=== PATIENT | female | born 1970 | race Caucasian/White ===

== ENCOUNTER 2021-11-01 13:29 | Inpatient (IN) ==
[2021-11-01] MEDS: methocarbamoL 500 MG TABLET PO SCH ×2 (22:06→22:20)
[2021-11-01] MEDS: Gabapentin 300 MG CAPSULE PO SCH (22:20)
[2021-11-01] MEDS: *HR* OxyCODONE Immed Rel 5 MG TABLET PO PRN (22:20)
[2021-11-02] MEDS: Simethicone 80 MG TAB.CHEW PO PRN ×2 (07:39→21:02)
[2021-11-02] MEDS: *HR* OxyCODONE Immed Rel 5 MG TABLET PO PRN ×3 (07:40→21:03)
[2021-11-02] MEDS: *HR* Enoxaparin 40 MG/0.4 ML SYRINGE SQ SCH (07:41)
[2021-11-02] MEDS: methocarbamoL 500 MG TABLET PO SCH ×2 (07:42→16:13)
[2021-11-02 08:18] LABS: Basophils % 0.5 %; Eosinophils # 0.4 K/mcL (0.0-0.6); Eosinophils % 6.8 %; Hemoglobin 8.3 g/dL (11.5-15.4); Immature Granulocytes % 0.9 % (0-4); Lymphocytes # 1.4 K/mcL (0.6-4.6); Lymphocytes % 21.9 %; Mean Corpuscular HGB Conc 29.6 g/dL (31.6-35.5); Mean Corpuscular Hemoglobin 25.6 pg (28.0-33.3); Mean Corpuscular Volume 86.4 fL (83.0-100.0); Mean Platelet Volume 9.7 fL (9.4-12.4); Monocytes # 0.5 K/mcL (0.0-1.3); Monocytes % 7.3 %; Platelet Count 337 K/mcL (140-400); Red Blood Count 3.24 M/mcL (3.82-4.97); Red Cell Distribution Width 18.6 % (11.5-14.5); Segmented Neutrophils % 62.6 %; White Blood Count 6.5 K/mcL (4.3-11.1)
[2021-11-02 08:43] LABS: BUN/Creatinine Ratio 12 (6-26); Blood Urea Nitrogen 7 mg/dL (6-20); Calcium 8.4 mg/dL (8.6-10.3); Carbon Dioxide 29 mEq/L (23-29); Chloride 102 mEq/L (98-107); Glucose 78 mg/dL (70-105); Osmolality,Calculated 283 (280-300); Potassium 3.8 mEq/L (3.5-5.1); Sodium 138 mEq/L (136-145); eGFR For African Americans > 60 (> 60); eGFR For Non-African Americans > 60 (> 60)
[2021-11-02] MEDS ORDERED: DAPTOMYCIN 350 MG IV SCH (09:00)
[2021-11-02] MEDS: Gabapentin 300 MG CAPSULE PO SCH ×3 (09:04→21:03)
[2021-11-02] MEDS: Ertapenem 1,000 MG in 0.9 % Sodium Chloride Mini Bag 100 ML IVPB SCH (09:04)
[2021-11-02] MEDS: DAPTOmycin 700 MG in 0.9 % Sodium Chloride 100 ML IVPB SCH (10:22)
[2021-11-02] MEDS: Famotidine 20 MG TABLET PO PRN (21:03)
[2021-11-03] MEDS: methocarbamoL 500 MG TABLET PO SCH ×3 (01:34→16:39)
[2021-11-03] MEDS: *HR* OxyCODONE Immed Rel 5 MG TABLET PO PRN ×3 (06:45→21:32)
[2021-11-03] MEDS: *HR* Enoxaparin 40 MG/0.4 ML SYRINGE SQ SCH (06:46)
[2021-11-03] MEDS: Gabapentin 300 MG CAPSULE PO SCH ×3 (09:35→21:12)
[2021-11-03] MEDS: Ertapenem 1,000 MG in 0.9 % Sodium Chloride Mini Bag 100 ML IVPB SCH (09:36)
[2021-11-03] MEDS: DAPTOmycin 700 MG in 0.9 % Sodium Chloride 100 ML IVPB SCH (09:37)
[2021-11-03] MEDS: Simethicone 80 MG TAB.CHEW PO PRN (09:48)
[2021-11-03] MEDS: Ondansetron ODT 4 MG TAB.RAPDIS SL PRN (12:59)
[2021-11-04] MEDS: methocarbamoL 500 MG TABLET PO SCH ×3 (00:17→17:07)
[2021-11-04 05:16] LABS: Hematocrit 28.9 % (35.3-44.9); Hemoglobin 8.8 g/dL (11.5-15.4); Mean Corpuscular HGB Conc 30.4 g/dL (31.6-35.5); Mean Corpuscular Volume 85.3 fL (83.0-100.0); Mean Platelet Volume 9.2 fL (9.4-12.4); Platelet Count 332 K/mcL (140-400); Red Blood Count 3.39 M/mcL (3.82-4.97); Red Cell Distribution Width 17.8 % (11.5-14.5); White Blood Count 7.8 K/mcL (4.3-11.1)
[2021-11-04] MEDS: *HR* Enoxaparin 40 MG/0.4 ML SYRINGE SQ SCH (05:26)
[2021-11-04] MEDS: *HR* OxyCODONE Immed Rel 5 MG TABLET PO PRN ×3 (05:26→21:24)
[2021-11-04] MEDS: Simethicone 80 MG TAB.CHEW PO PRN (05:27)
[2021-11-04 05:36] LABS: BUN/Creatinine Ratio 11 (6-26); Blood Urea Nitrogen 7 mg/dL (6-20); Calcium 8.4 mg/dL (8.6-10.3); Carbon Dioxide 30 mEq/L (23-29); Chloride 100 mEq/L (98-107); Glucose 95 mg/dL (70-105); Osmolality,Calculated 280 (280-300); Potassium 3.6 mEq/L (3.5-5.1); Sodium 136 mEq/L (136-145); eGFR For African Americans > 60 (> 60); eGFR For Non-African Americans > 60 (> 60)
[2021-11-04] MEDS: Gabapentin 300 MG CAPSULE PO SCH ×3 (09:58→21:24)
[2021-11-04] MEDS: Ertapenem 1,000 MG in 0.9 % Sodium Chloride Mini Bag 100 ML IVPB SCH (09:59)
[2021-11-04] MEDS: DAPTOmycin 700 MG in 0.9 % Sodium Chloride 100 ML IVPB SCH (10:02)
[2021-11-05] MEDS: methocarbamoL 500 MG TABLET PO SCH ×3 (00:44→16:50)
[2021-11-05] MEDS: *HR* Enoxaparin 40 MG/0.4 ML SYRINGE SQ SCH (06:05)
[2021-11-05] MEDS: *HR* OxyCODONE Immed Rel 5 MG TABLET PO PRN ×3 (06:14→21:22)
[2021-11-05] MEDS: Ertapenem 1,000 MG in 0.9 % Sodium Chloride Mini Bag 100 ML IVPB SCH (09:01)
[2021-11-05] MEDS: Gabapentin 300 MG CAPSULE PO SCH ×3 (09:01→21:21)
[2021-11-05] MEDS: DAPTOmycin 700 MG in 0.9 % Sodium Chloride 100 ML IVPB SCH (10:09)
[2021-11-06] MEDS: methocarbamoL 500 MG TABLET PO SCH ×3 (00:03→16:02)
[2021-11-06] MEDS: *HR* Enoxaparin 40 MG/0.4 ML SYRINGE SQ SCH (05:44)
[2021-11-06] MEDS: *HR* OxyCODONE Immed Rel 5 MG TABLET PO PRN ×2 (05:44→13:06)
[2021-11-06] MEDS: DAPTOmycin 700 MG in 0.9 % Sodium Chloride 100 ML IVPB SCH (10:07)
[2021-11-06] MEDS: Gabapentin 300 MG CAPSULE PO SCH ×3 (10:07→21:20)
[2021-11-06] MEDS: Ertapenem 1,000 MG in 0.9 % Sodium Chloride Mini Bag 100 ML IVPB SCH (10:08)
[2021-11-06] MEDS: Ondansetron ODT 4 MG TAB.RAPDIS SL PRN (13:07)
[2021-11-07] MEDS: methocarbamoL 500 MG TABLET PO SCH ×3 (00:14→14:33)
[2021-11-07] MEDS: *HR* Enoxaparin 40 MG/0.4 ML SYRINGE SQ SCH (05:54)
[2021-11-07] MEDS: *HR* OxyCODONE Immed Rel 5 MG TABLET PO PRN ×3 (05:59→21:16)
[2021-11-07] MEDS: Gabapentin 300 MG CAPSULE PO SCH ×3 (08:22→21:15)
[2021-11-07] MEDS: Famotidine 20 MG TABLET PO PRN (08:22)
[2021-11-07] MEDS: Ertapenem 1,000 MG in 0.9 % Sodium Chloride Mini Bag 100 ML IVPB SCH (08:22)
[2021-11-07] MEDS: DAPTOmycin 700 MG in 0.9 % Sodium Chloride 100 ML IVPB SCH (09:27)
[2021-11-07] MEDS ORDERED: Iopamidol - 370 500 ML MLS IVP ONE (17:39)
[2021-11-08] MEDS: methocarbamoL 500 MG TABLET PO SCH ×4 (00:43→23:00)
[2021-11-08] MEDS: *HR* Enoxaparin 40 MG/0.4 ML SYRINGE SQ SCH (06:12)
[2021-11-08] MEDS: *HR* OxyCODONE Immed Rel 5 MG TABLET PO PRN ×2 (06:18→22:35)
[2021-11-08] MEDS: Gabapentin 300 MG CAPSULE PO SCH ×3 (09:44→20:52)
[2021-11-08] MEDS: Ertapenem 1,000 MG in 0.9 % Sodium Chloride Mini Bag 100 ML IVPB SCH (09:45)
[2021-11-08] MEDS: DAPTOmycin 700 MG in 0.9 % Sodium Chloride 100 ML IVPB SCH (10:53)
[2021-11-08] MEDS: Ondansetron ODT 4 MG TAB.RAPDIS SL PRN (11:08)
[2021-11-09] MEDS: *HR* Enoxaparin 40 MG/0.4 ML SYRINGE SQ SCH (06:32)
[2021-11-09] MEDS: *HR* OxyCODONE Immed Rel 5 MG TABLET PO PRN (06:32)
[2021-11-09 08:08] LABS: Basophils % 0.9 %; Eosinophils # 0.5 K/mcL (0.0-0.6); Eosinophils % 10.7 %; Hematocrit 30.2 % (35.3-44.9); Hemoglobin 9.4 g/dL (11.5-15.4); Immature Granulocytes % 0.4 % (0-4); Lymphocytes # 1.1 K/mcL (0.6-4.6); Mean Corpuscular HGB Conc 31.1 g/dL (31.6-35.5); Mean Corpuscular Hemoglobin 26.3 pg (28.0-33.3); Mean Corpuscular Volume 84.4 fL (83.0-100.0); Monocytes # 0.4 K/mcL (0.0-1.3); Monocytes % 8.6 %; Neutrophils # 2.5 K/mcL (1.6-8.9); Platelet Count 304 K/mcL (140-400); Red Blood Count 3.58 M/mcL (3.82-4.97); Red Cell Distribution Width 16.8 % (11.5-14.5); Segmented Neutrophils % 54.4 %; White Blood Count 4.6 K/mcL (4.3-11.1)
[2021-11-09] MEDS: methocarbamoL 500 MG TABLET PO SCH ×2 (08:21→16:07)
[2021-11-09] MEDS: Gabapentin 300 MG CAPSULE PO SCH ×3 (08:21→21:40)
[2021-11-09] MEDS: Ertapenem 1,000 MG in 0.9 % Sodium Chloride Mini Bag 100 ML IVPB SCH (08:22)
[2021-11-09 08:23] LABS: BUN/Creatinine Ratio 10 (6-26); Blood Urea Nitrogen 6 mg/dL (6-20); Calcium 8.7 mg/dL (8.6-10.3); Carbon Dioxide 30 mEq/L (23-29); Chloride 102 mEq/L (98-107); Glucose 95 mg/dL (70-105); Osmolality,Calculated 285 (280-300); Potassium 3.6 mEq/L (3.5-5.1); Sodium 139 mEq/L (136-145); eGFR For African Americans > 60 (> 60); eGFR For Non-African Americans > 60 (> 60)
[2021-11-09] MEDS: DAPTOmycin 700 MG in 0.9 % Sodium Chloride 100 ML IVPB SCH (10:49)
[2021-11-10] MEDS: *HR* OxyCODONE Immed Rel 5 MG TABLET PO PRN (02:08)
[2021-11-10] MEDS: methocarbamoL 500 MG TABLET PO SCH ×3 (02:08→15:49)
[2021-11-10] MEDS: *HR* Enoxaparin 40 MG/0.4 ML SYRINGE SQ SCH (06:27)
[2021-11-10] MEDS: Gabapentin 300 MG CAPSULE PO SCH ×3 (08:37→20:41)
[2021-11-11] MEDS: methocarbamoL 500 MG TABLET PO SCH ×3 (00:32→15:37)
[2021-11-11] MEDS: *HR* Enoxaparin 40 MG/0.4 ML SYRINGE SQ SCH (05:38)
[2021-11-11] MEDS: *HR* OxyCODONE Immed Rel 5 MG TABLET PO PRN ×2 (05:47→21:06)
[2021-11-11] MEDS: Gabapentin 300 MG CAPSULE PO SCH ×3 (08:59→21:06)
[2021-11-12] MEDS: methocarbamoL 500 MG TABLET PO SCH ×3 (00:36→15:29)
[2021-11-12] MEDS: *HR* Enoxaparin 40 MG/0.4 ML SYRINGE SQ SCH (05:19)
[2021-11-12] MEDS: *HR* OxyCODONE Immed Rel 5 MG TABLET PO PRN ×2 (05:20→15:29)
[2021-11-12] MEDS: Gabapentin 300 MG CAPSULE PO SCH ×3 (08:11→20:44)
[2021-11-12 20:32] VITALS: O2SAT 97
[2021-11-13] MEDS: methocarbamoL 500 MG TABLET PO SCH ×2 (02:04→08:52)
[2021-11-13] MEDS: *HR* OxyCODONE Immed Rel 5 MG TABLET PO PRN (02:04)
[2021-11-13] MEDS: *HR* Enoxaparin 40 MG/0.4 ML SYRINGE SQ SCH (05:40)
[2021-11-13 08:07] VITALS: BP 110/69; PULSE 52; RESP 16; TEMP 98.1
[2021-11-13] MEDS: Gabapentin 300 MG CAPSULE PO SCH (08:51)
== END 2021-11-13 12:38 | disposition home or self-care (01) | DRG 392 ==
LOC: INPPIK 18:54
PROVIDERS: ADMIT Family Medicine; ATTEND Family Medicine